=== PATIENT | male | born 1955 | race Caucasian/White ===

== ENCOUNTER 2018-08-26 07:08 | Emergency (ER) | payer BC, OTHER ==
[~2018-08-26] VITALS: Ht 182.9 cm; Wt 78.9 kg
[2018-08-26] MEDS ORDERED: SODIUM CHLORIDE FLUSH 10ML SYR IVF ONE (08:00)
[2018-08-26] MEDS ORDERED: KETOROLAC 30 MG/1 ML IVPush ONE (08:00)
[2018-08-26] MEDS ORDERED: HYDROmorphone 1 MG/ML, 1ML INJ IVPush PRN (08:00)
[2018-08-26] MEDS ORDERED: KETOROLAC 30 MG/1 ML ONE (08:14)
[2018-08-26] MEDS ORDERED: HYDROmorphone 2 MG/ML, 1ML ONE (08:15)
[2018-08-26 08:18] LABS: BASOPHILS # (AUTO) 0.01 x10^3/uL (0-0.1); BASOPHILS % (AUTO) 0 % (0-1); EOSINOPHILS # (AUTO) 0.02 x10^3/uL (0-0.4); EOSINOPHILS % (AUTO) 0 % (1-7); LYMPHOCYTES # (AUTO) 0.67 x10^3/uL (1-3.4); LYMPHOCYTES % (AUTO) 14 % (22-44); MD NO; MEAN CORPUSCULAR HEMOGLOBIN 28.8 pg (27.5-34.5); MEAN CORPUSCULAR HGB CONC 32.4 g/dL (33.2-36.2); MEAN PLATELET VOLUME 7.5 fL (7.4-10.4); MONOCYTES # (AUTO) 0.68 x10^3/uL (0.2-0.8); MONOCYTES % (AUTO) 15 % (2-9); NEUTROPHILS # (AUTO) 3.27 x10^3/uL (1.8-6.8); NEUTROPHILS % (AUTO) 71 % (42-75); PLATELET COUNT 139 x10^3/uL (130-400); RED BLOOD COUNT 4.15 x10^6/uL (4.38-5.82); RED CELL DISTRIBUTION WIDTH 16.2 % (9.4-14.8)
--- NOTE | 2018-08-26 08:19 | NUR ---
Pt to radiology via desirae Medicated for pain as ordered
[2018-08-26 08:31] LABS: ALBUMIN 3.1 g/dL (3.4-5.0); ANION GAP 6 mmol/L (5-15); CALCIUM 9.9 mg/dL (8.5-10.1); CHLORIDE 107 mmol/L (98-107); CREATININE 1.05 mg/dL (0.7-1.3)
[2018-08-26 09:38] VITALS: BP 94/57
== END 2018-08-26 09:57 | disposition home or self-care (01) ==
LOC: ED 08:41
DX: G89.29 Other chronic pain (principal); M25.511 Pain in right shoulder
CPT/HCPCS: 36415; 71045; 72050; 73030; 80048; 82040; 84550; 85025; 96374; 96375; 99284; J1170; J1885

== ENCOUNTER 2018-11-09 09:55 | Day surgery (SDC) | payer OTHER ==
[~2018-11-09] VITALS: Ht 182.9 cm; Wt 67.7 kg
[~2018-11-09 09:55] MED LIST: ACYC-113 PO; ALLO300T PO; APIX5TAB PO; DEXA10PO2 PO; FLUC100T PO; FLUC40SU PO; FURO20TA3 PO; LEVO75TA PO; NYST1000 PO; ONDA4TAB13 PO; POTA20TA6 PO; PRED1TAB19 PO; Tamsulosin PO
[2018-11-09] MEDS ORDERED: SODIUM CHLORIDE 0.9% 1,000 ML IV SCH (10:44)
[2018-11-09] MEDS ORDERED: VANCOMYCIN PER PHARMACY MC ONE (10:56)
[2018-11-09 10:57] VITALS: BP 104/72
[2018-11-09] MEDS ORDERED: PHARMACOKINETIC CONSULTATION MC ONE (11:30)
[2018-11-09] MEDS ORDERED: VANCOMYCIN 1,400 MG in SODIUM CHLORIDE 0.9% 250 ML IV ONE (11:30)
[2018-11-09] MEDS ORDERED: LIDOCAINE-MPF 1%, 5ML ONE (11:57)
[2018-11-09] MEDS ORDERED: FENTANYL PF 100 MCG/2ML ONE ×2 (13:08)
[2018-11-09] MEDS ORDERED: MIDAZOLAM 1 MG/ML, 5ML ONE (13:08)
[2018-11-09] MEDS ORDERED: FLUMAZENIL 0.1 MG/1 ML, 5ML ONE (13:08)
[2018-11-09] MEDS ORDERED: NALOXONE 1 MG/ML, 2ML ONE (13:08)
[2018-11-09] MEDS ORDERED: LIDOCAINE 1%, 20ML ONE (13:27)
== END 2018-11-09 16:15 | disposition home or self-care (01) ==
LOC: OUT 09:55
PROVIDERS: ATTEND Internal Medicine
DX: C83.30 Diffuse large B-cell lymphoma, unspecified site (principal); E03.9 Hypothyroidism, unspecified; N40.0 Benign prostatic hyperplasia without lower urinary tract symptoms; B37.81 Candidal esophagitis; E46 Unspecified protein-calorie malnutrition; Z72.89 Other problems related to lifestyle; Z79.890 Hormone replacement therapy; Z79.899 Other long term (current) drug therapy; Z88.0 Allergy status to penicillin; Z90.49 Acquired absence of other specified parts of digestive tract; Z96.611 Presence of right artificial shoulder joint; Z80.42 Family history of malignant neoplasm of prostate
CPT/HCPCS: 36561; 62270; 76937; 77001; 77003; 88108; 99156; 99157; C1788; J1642; J2250; J3010; J3370; J7050; J2310

== ENCOUNTER 2019-02-19 08:00 | Inpatient (IN) | payer OTHER ==
[~2019-02-19] VITALS: Ht 182.9 cm; Wt 71.8 kg
[2019-02-19] MEDS ORDERED: LIDOCAINE/PRILOCAINE CRM W/TEG 5GM TP PRN (08:30)
[2019-02-19 08:48] VITALS: BP 97/61
[2019-02-19] MEDS ORDERED: PLEASE ENTER HEIGHT AND WEIGHT MC SCH (09:00)
[2019-02-19 09:01] LABS: BASOPHILS # (AUTO) 0.02 x10^3/uL (0-0.1); BASOPHILS % (AUTO) 0 % (0-1); EOSINOPHILS # (AUTO) 0.04 x10^3/uL (0-0.4); EOSINOPHILS % (AUTO) 1 % (1-7); LYMPHOCYTES # (AUTO) 0.29 x10^3/uL (1-3.4); LYMPHOCYTES % (AUTO) 4 % (22-44); MD NO; MEAN CORPUSCULAR HEMOGLOBIN 29.7 pg (27.5-34.5); MEAN CORPUSCULAR HGB CONC 32.3 g/dL (33.2-36.2); MEAN PLATELET VOLUME 7.1 fL (7.4-10.4); MONOCYTES # (AUTO) 0.63 x10^3/uL (0.2-0.8); MONOCYTES % (AUTO) 8 % (2-9); NEUTROPHILS # (AUTO) 7.18 x10^3/uL (1.8-6.8); NEUTROPHILS % (AUTO) 88 % (42-75); PLATELET COUNT 256 x10^3/uL (130-400); RED BLOOD COUNT 4.11 x10^6/uL (4.38-5.82); RED CELL DISTRIBUTION WIDTH 16.8 % (9.4-14.8)
[2019-02-19 09:08] LABS: ALANINE AMINOTRANSFERASE 12 U/L (12-78); ALBUMIN 3.2 g/dL (3.4-5.0); ANION GAP 4 mmol/L (5-15); CALCIUM 8.7 mg/dL (8.5-10.1); CHLORIDE 106 mmol/L (98-107); CREATININE 0.98 mg/dL (0.7-1.3)
[2019-02-19 09:10] LABS: ALKALINE PHOSPHATASE 69 U/L (45-117); BILIRUBIN,TOTAL 0.4 mg/dL (0.2-1.0)
[2019-02-19] MEDS: SODIUM BICARBONATE 8.4% 150 MEQ in DEXTROSE 5% 1,000 ML IV SCH ×2 (11:42→21:11)
[2019-02-19] MEDS ORDERED: ACETAMINOPHEN 325 MG TABLET PO PRN (12:00)
[2019-02-19] MEDS ORDERED: ONDANSETRON 2MG/ML, 2ML IV PRN (12:00)
[2019-02-19 12:48] VITALS: BP 89/54
[2019-02-19 13:39] VITALS: BP 93/59
[2019-02-19] MEDS ORDERED: ONDANSETRON 16 MG, DEXAMETHASONE 12 MG in SODIUM CHLORIDE 0.9% 50 ML IVPB ONE (16:00)
[2019-02-19] MEDS ORDERED: DEXTROSE 5% IV ONE (17:00)
[2019-02-19] MEDS ORDERED: METHOTREXATE IV ONE (17:00)
[2019-02-19 19:52] VITALS: BP 109/67
[2019-02-19] MEDS: APIXABAN 5 MG TABLET PO SCH (20:25)
[2019-02-20 03:19] VITALS: BP 94/59
[2019-02-20] MEDS: LEVOTHYROXINE 75 MCG TABLET PO SCH (05:03)
[2019-02-20 05:44] LABS: BASOPHILS % (AUTO) 0 % (0-1); EOSINOPHILS # (AUTO) 0.07 x10^3/uL (0-0.4); EOSINOPHILS % (AUTO) 1 % (1-7); LYMPHOCYTES # (AUTO) 0.26 x10^3/uL (1-3.4); LYMPHOCYTES % (AUTO) 4 % (22-44); MD NO; MEAN CORPUSCULAR HEMOGLOBIN 29.9 pg (27.5-34.5); MEAN CORPUSCULAR HGB CONC 32.2 g/dL (33.2-36.2); MEAN CORPUSCULAR VOLUME 92.6 fL (81-97); MEAN PLATELET VOLUME 7.2 fL (7.4-10.4); MONOCYTES # (AUTO) 0.42 x10^3/uL (0.2-0.8); MONOCYTES % (AUTO) 6 % (2-9); NEUTROPHILS # (AUTO) 6.26 x10^3/uL (1.8-6.8); NEUTROPHILS % (AUTO) 89 % (42-75); PLATELET COUNT 245 x10^3/uL (130-400); RED BLOOD COUNT 3.57 x10^6/uL (4.38-5.82); RED CELL DISTRIBUTION WIDTH 16.8 % (9.4-14.8)
[2019-02-20 05:48] LABS: ALANINE AMINOTRANSFERASE 21 U/L (12-78); ALBUMIN 2.8 g/dL (3.4-5.0); ANION GAP 5 mmol/L (5-15); CALCIUM 8.4 mg/dL (8.5-10.1); CHLORIDE 106 mmol/L (98-107); CREATININE 0.85 mg/dL (0.7-1.3)
[2019-02-20 05:50] LABS: ALKALINE PHOSPHATASE 57 U/L (45-117); BILIRUBIN,TOTAL 0.7 mg/dL (0.2-1.0); TOTAL PROTEIN 6.1 g/dL (6.4-8.2)
[2019-02-20 07:11] VITALS: BP 99/65
[2019-02-20] MEDS: SODIUM BICARBONATE 8.4% 150 MEQ in DEXTROSE 5% 1,000 ML IV SCH ×2 (07:55→18:34)
[2019-02-20] MEDS: APIXABAN 5 MG TABLET PO SCH ×2 (09:22→20:41)
[2019-02-20 12:38] VITALS: BP 87/56
[2019-02-20] MEDS ORDERED: SODIUM CHLORIDE 0.9% IV SCH (17:00)
[2019-02-20] MEDS ORDERED: LEUCOVORIN IV SCH (17:00)
[2019-02-20] MEDS: SODIUM CHLORIDE 0.9% IV SCH ×2 (17:50→23:32)
[2019-02-20] MEDS: LEUCOVORIN IV SCH ×2 (17:50→23:32)
[2019-02-20 18:31] VITALS: BP 94/59
[2019-02-21 00:17] VITALS: BP 100/61
[2019-02-21 03:26] LABS: BASOPHILS # (AUTO) 0.05 x10^3/uL (0-0.1); BASOPHILS % (AUTO) 1 % (0-1); EOSINOPHILS % (AUTO) 0 % (1-7); LYMPHOCYTES # (AUTO) 0.29 x10^3/uL (1-3.4); LYMPHOCYTES % (AUTO) 4 % (22-44); MD NO; MEAN CORPUSCULAR HEMOGLOBIN 29.1 pg (27.5-34.5); MEAN CORPUSCULAR HGB CONC 31.7 g/dL (33.2-36.2); MEAN CORPUSCULAR VOLUME 91.8 fL (81-97); MEAN PLATELET VOLUME 7.2 fL (7.4-10.4); MONOCYTES # (AUTO) 0.19 x10^3/uL (0.2-0.8); MONOCYTES % (AUTO) 3 % (2-9); NEUTROPHILS # (AUTO) 6.96 x10^3/uL (1.8-6.8); NEUTROPHILS % (AUTO) 93 % (42-75); PLATELET COUNT 289 x10^3/uL (130-400); RED BLOOD COUNT 3.67 x10^6/uL (4.38-5.82)
[2019-02-21 03:42] LABS: ALANINE AMINOTRANSFERASE 34 U/L (12-78); ALKALINE PHOSPHATASE 67 U/L (45-117); ANION GAP 5 mmol/L (5-15); BILIRUBIN,TOTAL 0.3 mg/dL (0.2-1.0); CALCIUM 8.3 mg/dL (8.5-10.1); CHLORIDE 106 mmol/L (98-107); CREATININE 1.03 mg/dL (0.7-1.3)
[2019-02-21 03:43] LABS: ALBUMIN 2.8 g/dL (3.4-5.0); TOTAL PROTEIN 6.3 g/dL (6.4-8.2)
[2019-02-21] MEDS: LEUCOVORIN IV SCH ×4 (05:27→23:28)
[2019-02-21] MEDS: LEVOTHYROXINE 75 MCG TABLET PO SCH (05:27)
[2019-02-21] MEDS: SODIUM CHLORIDE 0.9% IV SCH ×4 (05:27→23:28)
[2019-02-21 07:15] VITALS: BP 107/73
[2019-02-21] MEDS: APIXABAN 5 MG TABLET PO SCH ×2 (08:33→20:47)
[2019-02-21] MEDS ORDERED: SODIUM BICARBONATE 8.4% 75 MEQ in DEXTROSE 5% 1,000 ML IV SCH (11:30)
[2019-02-21] MEDS ORDERED: SODIUM BICARBONATE 8.4% 100 MEQ in DEXTROSE 5% 1,000 ML IV SCH (11:30)
[2019-02-21 12:47] VITALS: BP 93/57
[2019-02-21 19:00] VITALS: BP 107/69
[2019-02-21] MEDS: SODIUM BICARBONATE 8.4% 50 MEQ in DEXTROSE 5% 1,000 ML IV SCH (23:05)
[2019-02-22 02:53] VITALS: BP 97/62
[2019-02-22] MEDS: LEVOTHYROXINE 75 MCG TABLET PO SCH (05:45)
[2019-02-22 06:10] LABS: ALBUMIN 2.7 g/dL (3.4-5.0); ANION GAP 4 mmol/L (5-15); CHLORIDE 106 mmol/L (98-107)
[2019-02-22 06:11] LABS: BASOPHILS # (AUTO) 0.03 x10^3/uL (0-0.1); BASOPHILS % (AUTO) 1 % (0-1); EOSINOPHILS # (AUTO) 0.02 x10^3/uL (0-0.4); EOSINOPHILS % (AUTO) 0 % (1-7); LYMPHOCYTES # (AUTO) 0.23 x10^3/uL (1-3.4); LYMPHOCYTES % (AUTO) 5 % (22-44); MD NO; MEAN CORPUSCULAR HEMOGLOBIN 30.2 pg (27.5-34.5); MEAN CORPUSCULAR HGB CONC 32.3 g/dL (33.2-36.2); MEAN CORPUSCULAR VOLUME 93.2 fL (81-97); MEAN PLATELET VOLUME 6.9 fL (7.4-10.4); MONOCYTES # (AUTO) 0.03 x10^3/uL (0.2-0.8); MONOCYTES % (AUTO) 1 % (2-9); NEUTROPHILS # (AUTO) 4.87 x10^3/uL (1.8-6.8); NEUTROPHILS % (AUTO) 94 % (42-75); PLATELET COUNT 285 x10^3/uL (130-400); RED BLOOD COUNT 3.36 x10^6/uL (4.38-5.82); RED CELL DISTRIBUTION WIDTH 16.5 % (9.4-14.8)
[2019-02-22 06:16] LABS: ALANINE AMINOTRANSFERASE 63 U/L (12-78); ALKALINE PHOSPHATASE 54 U/L (45-117); BILIRUBIN,TOTAL 0.4 mg/dL (0.2-1.0); CREATININE 0.89 mg/dL (0.7-1.3); TOTAL PROTEIN 5.7 g/dL (6.4-8.2)
[2019-02-22] MEDS: SODIUM CHLORIDE 0.9% IV SCH ×3 (06:26→19:21)
[2019-02-22] MEDS: LEUCOVORIN IV SCH ×3 (06:26→19:21)
[2019-02-22 07:33] VITALS: BP 114/71
[2019-02-22] MEDS: APIXABAN 5 MG TABLET PO SCH ×2 (09:19→20:29)
[2019-02-22] MEDS ORDERED: SODIUM BICARBONATE 8.4% 75 MEQ in DEXTROSE 5% 1,000 ML IV SCH (11:30)
[2019-02-22 12:40] VITALS: BP 97/67
[2019-02-22 15:35] LABS: MICROSCOPIC NOT IND
[2019-02-22 17:33] VITALS: BP 94/60
[2019-02-22 20:30] VITALS: BP 106/71
[2019-02-23] MEDS: SODIUM CHLORIDE 0.9% IV SCH ×3 (01:34→14:58)
[2019-02-23] MEDS: LEUCOVORIN IV SCH ×3 (01:34→14:58)
[2019-02-23 01:36] VITALS: BP 110/69
[2019-02-23] MEDS: SODIUM BICARBONATE 8.4% 50 MEQ in DEXTROSE 5% 1,000 ML IV SCH (02:47)
[2019-02-23] MEDS: LEVOTHYROXINE 75 MCG TABLET PO SCH (05:10)
[2019-02-23 05:24] LABS: BASOPHILS # (AUTO) 0.05 x10^3/uL (0-0.1); BASOPHILS % (AUTO) 1 % (0-1); EOSINOPHILS # (AUTO) 0.01 x10^3/uL (0-0.4); EOSINOPHILS % (AUTO) 0 % (1-7); LYMPHOCYTES # (AUTO) 0.23 x10^3/uL (1-3.4); LYMPHOCYTES % (AUTO) 5 % (22-44); MD NO; MEAN CORPUSCULAR HEMOGLOBIN 29.6 pg (27.5-34.5); MEAN CORPUSCULAR HGB CONC 32.7 g/dL (33.2-36.2); MEAN CORPUSCULAR VOLUME 90.6 fL (81-97); MEAN PLATELET VOLUME 6.7 fL (7.4-10.4); MONOCYTES # (AUTO) 0.05 x10^3/uL (0.2-0.8); MONOCYTES % (AUTO) 1 % (2-9); NEUTROPHILS # (AUTO) 4.22 x10^3/uL (1.8-6.8); NEUTROPHILS % (AUTO) 93 % (42-75); PLATELET COUNT 286 x10^3/uL (130-400); RED BLOOD COUNT 3.44 x10^6/uL (4.38-5.82); RED CELL DISTRIBUTION WIDTH 16.9 % (9.4-14.8)
[2019-02-23 05:37] LABS: ALANINE AMINOTRANSFERASE 70 U/L (12-78); ALBUMIN 2.7 g/dL (3.4-5.0); ANION GAP 4 mmol/L (5-15); CALCIUM 7.9 mg/dL (8.5-10.1); CHLORIDE 108 mmol/L (98-107); CREATININE 0.83 mg/dL (0.7-1.3)
[2019-02-23 05:40] LABS: ALKALINE PHOSPHATASE 51 U/L (45-117); BILIRUBIN,TOTAL 0.4 mg/dL (0.2-1.0); TOTAL PROTEIN 5.9 g/dL (6.4-8.2)
[2019-02-23 07:59] VITALS: BP 94/62
[2019-02-23] MEDS: APIXABAN 5 MG TABLET PO SCH (08:08)
[2019-02-23] MEDS ORDERED: SODIUM BICARBONATE IV SCH (11:30)
[2019-02-23] MEDS ORDERED: DEXTROSE 5% IV SCH (11:30)
[2019-02-23 14:53] VITALS: BP 107/70
== END 2019-02-23 18:00 | disposition home or self-care (01) | DRG 847 ==
LOC: 4NW 08:09
PROVIDERS: ADMIT Internal Medicine; ATTEND Internal Medicine
DX: Z51.11 Encounter for antineoplastic chemotherapy (principal); C83.30 Diffuse large B-cell lymphoma, unspecified site; E06.3 Autoimmune thyroiditis; N40.0 Benign prostatic hyperplasia without lower urinary tract symptoms; Z96.611 Presence of right artificial shoulder joint; J32.8 Other chronic sinusitis; Z79.01 Long term (current) use of anticoagulants; Z86.718 Personal history of other venous thrombosis and embolism; Z90.49 Acquired absence of other specified parts of digestive tract
CPT/HCPCS: 36415; 80053; 80375; 81003; 83735; 85025; G0378; J1100; J2405; J7070; G0480; J0640; J9250

== ENCOUNTER 2019-03-13 12:30 | Outpatient (CLI) | payer OTHER | END 2019-03-13 23:59 | disposition home or self-care (01) | LOC: PETCFH 12:30 | PROVIDERS: ATTEND Internal Medicine | DX: C82.01 Follicular lymphoma grade I, lymph nodes of head, face, and neck (principal); C83.38 Diffuse large B-cell lymphoma, lymph nodes of multiple sites; F12.90 Cannabis use, unspecified, uncomplicated | CPT/HCPCS: 78815; A9552 ==

== ENCOUNTER 2019-03-27 08:57 | Day surgery (SDC) | payer OTHER ==
[~2019-03-27] VITALS: Ht 182.9 cm; Wt 77.2 kg
[2019-03-27 09:22] VITALS: BP 108/70
[2019-03-27] MEDS ORDERED: LIDOCAINE 1%, 20ML ONE (11:01)
[2019-03-27] MEDS ORDERED: FLUMAZENIL 0.1 MG/1 ML, 5ML ONE (11:11)
[2019-03-27] MEDS ORDERED: FENTANYL PF 100 MCG/2ML ONE (11:11)
[2019-03-27] MEDS ORDERED: NALOXONE 1 MG/ML, 2ML ONE (11:11)
[2019-03-27] MEDS ORDERED: MIDAZOLAM 1 MG/ML, 5ML ONE (11:11)
== END 2019-03-27 13:00 | disposition home or self-care (01) ==
LOC: OUT 08:57
PROVIDERS: ATTEND Internal Medicine
DX: Z45.2 Encounter for adjustment and management of vascular access device (principal); C82.01 Follicular lymphoma grade I, lymph nodes of head, face, and neck; E03.9 Hypothyroidism, unspecified; N40.0 Benign prostatic hyperplasia without lower urinary tract symptoms; G62.9 Polyneuropathy, unspecified; Z79.01 Long term (current) use of anticoagulants; Z79.890 Hormone replacement therapy; Z79.899 Other long term (current) drug therapy; Z86.718 Personal history of other venous thrombosis and embolism; Z88.0 Allergy status to penicillin; Z92.21 Personal history of antineoplastic chemotherapy; Z96.611 Presence of right artificial shoulder joint; Z90.49 Acquired absence of other specified parts of digestive tract; Z98.890 Other specified postprocedural states
CPT/HCPCS: 36590; 77001; 99156; 99157; J2250; J3010; J2310

== ENCOUNTER 2019-09-11 13:45 | Outpatient (CLI) | payer OTHER ==
[2019-09-11] MEDS ORDERED: OMNIPAQUE 350 MG/ML, 100ML BOTTLE ONE (16:26)
== END 2019-09-11 23:59 | disposition home or self-care (01) ==
LOC: CFH 13:45
PROVIDERS: ATTEND Internal Medicine
DX: C82.01 Follicular lymphoma grade I, lymph nodes of head, face, and neck (principal); C83.38 Diffuse large B-cell lymphoma, lymph nodes of multiple sites; M47.819 Spondylosis without myelopathy or radiculopathy, site unspecified
CPT/HCPCS: 74177; Q9967